=== PATIENT | female | born 1980 | race Caucasian/White ===

== ENCOUNTER → 2024-03-26 16:53 | Outpatient (REF) | payer BC, SELFPAY | LOC: WDC 16:53 | PROVIDERS: ATTENDING PHYSICIAN Student in an Organized Health Care Education/Training Program; FAMILY PHYSICIAN Nurse Practitioner Adult Health | DX: Z12.31 Encounter for screening mammogram for malignant neoplasm of breast (principal); Z01.419 Encounter for gynecological examination (general) (routine) without abnormal findings | CPT/HCPCS: 77063; 77067 ==

== ENCOUNTER → 2025-06-10 18:58 | Outpatient (REF) | payer BC, SELFPAY | LOC: WDC 18:58 | PROVIDERS: ATTENDING PHYSICIAN Nurse Practitioner Adult Health; FAMILY PHYSICIAN Family Medicine | DX: Z12.31 Encounter for screening mammogram for malignant neoplasm of breast (principal) | CPT/HCPCS: 77063; 77067 ==

== ENCOUNTER → 2025-08-08 12:42 | Outpatient (REF) | payer BC, SELFPAY | LOC: WDC 12:42 | PROVIDERS: ATTENDING PHYSICIAN Nurse Practitioner Adult Health; FAMILY PHYSICIAN Family Medicine | DX: N63.0 Unspecified lump in unspecified breast (principal); R92.2 Inconclusive mammogram | CPT/HCPCS: 76642 ==